=== PATIENT | male | born 1990 | race Hispanic/Latino ===

== ENCOUNTER 2018-12-05 17:43 | Emergency (ER) | payer SELFPAY ==
[2018-12-05 18:07] LABS: APPEARANCE,URINE Cloudy (CLEAR); BILIRUBIN,URINE Negative (NEGATIVE); COLOR,URINE Dark Yellow (YELLOW); GLUCOSE, URINE (UA) Negative (NEGATIVE); KETONES,URINE Negative (NEGATIVE); LEUKOCYTE ESTERASE ,URINE Trace (NEGATIVE); NITRATE,URINE Negative (NEGATIVE); OCCULT BLOOD,URINE Negative (NEGATIVE); PH,URINE 5.5 (5.0-8.0); PROTEIN,URINE POS 1+ mg/dL (NEGATIVE)
[2018-12-05 18:15] LABS: BACTERIA,URINE Few /HPF (None Seen); MUCUS,URINE Moderate LPF (None Seen); RBC,URINE 0-1 /HPF (0-1); SQUAMOUS EPITHELIAL CELL,UR Few /HPF (0-2)
[2018-12-05 18:17] LABS: AMPHET/METH SCREEN,URINE NEGATIVE (NEGATIVE); BARBITURATE SCREEN, URINE NEGATIVE (NEGATIVE); BENZODIAZEPINES SCREEN,URINE NEGATIVE (NEGATIVE); CANNABINOID SCREEN,URINE POSITIVE (NEGATIVE); COCAINE SCREEN,URINE NEGATIVE (NEGATIVE); OPIATE SCREEN,URINE NEGATIVE (NEGATIVE); PHENCYCLIDINE SCREEN,URINE NEGATIVE (NEGATIVE)
[2018-12-05] MEDS ORDERED: KETOROLAC TROMETHAMINE 30MG/ML ONE (18:21)
[2018-12-05] MEDS ORDERED: DICYCLOMINE HCL 10 MG/ML 2ML AMP IM ONE (18:21)
[2018-12-05] MEDS ORDERED: ONDANSETRON ODT 4 MG TAB ONE (18:22)
== END 2018-12-05 19:09 | disposition home or self-care (01) ==
LOC: EDH 17:43
DX: K52.9 Noninfective gastroenteritis and colitis, unspecified (principal); N39.0 Urinary tract infection, site not specified
CPT/HCPCS: 80305; 81001; 96372 ×2; 99284; J0500; J1885

== ENCOUNTER 2021-11-23 19:43 | Emergency (ER) | payer OTHER ==
[~2021-11-23] VITALS: Ht 167.6 cm; Wt 83.0 kg
[2021-11-23 20:08] VITALS: BP 116/74
[2021-11-23 20:10] LABS: BASOPHILS % (AUTO) 0.2 % (0.0-5.0); EOSINOPHILS % (AUTO) 0.7 % (0.0-8.0); HEMATOCRIT 44.8 % (42-54); LYMPHOCYTES % (AUTO) 16.9 % (21.0-51.0); MEAN CORPUSCULAR HEMOGLOBIN 29.3 pg (27.0-33.0); MEAN CORPUSCULAR HGB CONC 34.2 g/dL (32.0-36.0); MEAN CORPUSCULAR VOLUME 85.8 fL (79-99); MONOCYTES % (AUTO) 6.6 % (3.0-13.0); NEUTROPHILS % (AUTO) 75.2 % (40.0-77.0); PLATELET COUNT (AUTO) 346 K/uL (130-400); RED BLOOD CELL COUNT(AUTO) 5.22 MIL/uL (4.50-6.20); RED CELL DISTRIBUTION WIDTH 12.2 % (11.0-15.5); WHITE BLOOD COUNT (AUTO) 12.3 K/uL (4.8-10.8)
[2021-11-23 20:21] LABS: CREATININE 1.2 mg/dL (0.5-1.5); POTASSIUM 4.1 mmol/L (3.5-5.1)
[2021-11-23 20:28] LABS: TOTAL PROTEIN, SERUM 7.6 g/dL (6.0-8.3)
[2021-11-23 21:25] LABS: APPEARANCE,URINE CLEAR (CLEAR); BILIRUBIN,URINE NEGATIVE (NEGATIVE); COLOR,URINE LIGHT-YELLOW (YELLOW); GLUCOSE, URINE (UA) NEGATIVE (NEGATIVE); KETONES,URINE NEGATIVE (NEGATIVE); LEUKOCYTE ESTERASE ,URINE NEGATIVE Leu/uL (NEGATIVE); NITRATE,URINE NEGATIVE (NEGATIVE); OCCULT BLOOD,URINE NEGATIVE (NEGATIVE); PH,URINE 6.5 (5.0-8.0); PROTEIN,URINE NEGATIVE (NEGATIVE)
[2021-11-23 21:30] LABS: BACTERIA,URINE RARE /HPF (None Seen); MUCUS,URINE FEW LPF (None Seen); SQUAMOUS EPITHELIAL CELL,UR RARE /HPF (0-2)
[2021-11-23 21:31] LABS: AMPHET/METH SCREEN,URINE NEGATIVE (NEGATIVE); BARBITURATE SCREEN, URINE NEGATIVE (NEGATIVE); BENZODIAZEPINES SCREEN,URINE NEGATIVE (NEGATIVE); CANNABINOID SCREEN,URINE POSITIVE (NEGATIVE); COCAINE SCREEN,URINE POSITIVE (NEGATIVE); PHENCYCLIDINE SCREEN,URINE NEGATIVE (NEGATIVE)
== END 2021-11-23 21:38 | disposition home or self-care (01) ==
LOC: EDH 19:43
DX: R55 Syncope and collapse (principal)
CPT/HCPCS: 36415; 80053; 80305; 81001; 84484; 85025; 93005

== ENCOUNTER 2022-03-15 02:07 | Emergency (ER) | payer OTHER ==
[~2022-03-15] VITALS: Ht 167.6 cm; Wt 81.6 kg
[2022-03-15] MEDS ORDERED: LACTATED RINGERS 1000ML 1,000 ML IV ONE (02:30)
[2022-03-15] MEDS ORDERED: KETOROLAC 15MG/ML VIAL (15MG/ML) IV ONE (02:30)
[2022-03-15] MEDS ORDERED: ONDANSETRON 4MG INJ IV ONE (02:30)
[2022-03-15 02:45] LABS: BASOPHILS % (AUTO) 0.3 % (0.0-5.0); HEMATOCRIT 44.7 % (42-54); LYMPHOCYTES % (AUTO) 12.6 % (21.0-51.0); MEAN CORPUSCULAR HEMOGLOBIN 29.4 pg (27.0-33.0); MEAN CORPUSCULAR HGB CONC 35.1 g/dL (32.0-36.0); MEAN CORPUSCULAR VOLUME 83.7 fL (79-99); MONOCYTES % (AUTO) 6.8 % (3.0-13.0); NEUTROPHILS % (AUTO) 78.8 % (40.0-77.0); PLATELET COUNT (AUTO) 301 K/uL (130-400); RED BLOOD CELL COUNT(AUTO) 5.34 MIL/uL (4.50-6.20); RED CELL DISTRIBUTION WIDTH 12.8 % (11.0-15.5); WHITE BLOOD COUNT (AUTO) 17.1 K/uL (4.8-10.8)
[2022-03-15 02:56] LABS: CREATININE 1.4 mg/dL (0.5-1.5); POTASSIUM 3.9 mmol/L (3.5-5.1)
[2022-03-15 02:58] VITALS: BP 135/88
[2022-03-15 03:00] LABS: TOTAL PROTEIN, SERUM 7.5 g/dL (6.0-8.3)
[2022-03-15] MEDS ORDERED: TAMS-1 PO (03:45)
[2022-03-15] MEDS ORDERED: HYDR-4060 PO (03:45)
[2022-03-15] MEDS ORDERED: TAMSULOSIN HCL 0.4 MG CAP.ER.24H PO SCH (04:00)
== END 2022-03-15 03:54 | disposition home or self-care (01) ==
LOC: EDH 02:07
DX: N20.1 Calculus of ureter (principal); Z79.1 Long term (current) use of non-steroidal anti-inflammatories (NSAID)
CPT/HCPCS: 99285; 74176; 96374; 96361; 96375; 80053; 85025; 36415; J7120; J2405; J1885

== ENCOUNTER 2022-10-12 07:24 | Emergency (ER) | payer OTHER ==
[~2022-10-12] VITALS: Ht 170.2 cm; Wt 90.7 kg
[~2022-10-12 07:24] MED LIST: HYDR-4060 PO; TAMS-1 PO
[2022-10-12 08:16] LABS: RAPID GROUP A STREP negative (NEGATIVE)
[2022-10-12 08:20] LABS: SARS-CoV-2, RNA, NAAT NEGATIVE SARS CoV-2 (NEGATIVE)
[2022-10-12 08:26] LABS: INFLUENZA TYPE A Negative For Type A (NEGATIVE); INFLUENZA TYPE B Negative For Type B (NEGATIVE)
[2022-10-12 09:55] VITALS: BP 133/78; PULSE 78; RESP 18; O2SAT 98
== END 2022-10-12 09:56 | disposition home or self-care (01) ==
LOC: EDH 07:24
DX: J06.9 Acute upper respiratory infection, unspecified (principal); Z20.822 Contact with and (suspected) exposure to COVID-19; Z79.899 Other long term (current) drug therapy
CPT/HCPCS: 99283; 87635; 87880; 87804 ×2; C9803